=== PATIENT | male | born 1975 | race Caucasian/White ===

== ENCOUNTER 2018-05-26 15:27 | Emergency (ER) | payer OTHER ==
[~2018-05-26 15:27] MED LIST: ISOVUE-370 76%-LOCM 1 ML ONE
[2018-05-26 16:40] LABS: #Eosinphils 0.3 thou/uL (0.0-0.7); #Lymphocytes 2.8 thou/uL (1.20-3.40); #Monocytes 0.8 thou/uL (0.11-0.59); #Neutrophils 4.3 thou/uL (1.40-6.50); %Basophils 0.5 % (0.0-1.0); %Eosinophils 3.5 % (0.0-10.0); %Lymphocytes 33.9 % (21.0-51.0); %Monocytes 9.6 % (0.0-10.0); %Neutrophils 52.5 % (42.0-75.0); Mean Corpuscular HGB CONC 34.5 g/dL (32.0-36.0); Mean Corpuscular Hemoglobin 30.2 pg (27.0-31.0); Mean Corpuscular Volume 87.8 fL (78.0-98.0); Mean Platelet Volume 9.2 fL (7.4-10.4); Platelet Count 176 thou/uL (130-400); RBC Distribution Width 12.1 % (11.5-14.5); Red Blood Cell (RBC) Count 4.65 mill/uL (4.70-6.10); White Blood Cell (WBC) Count 8.1 thou/uL (4.8-10.8)
[2018-05-26 16:58] LABS: ALT (SGPT) 32 U/L (8-55); AST (SGOT) 34 U/L (5-34); Albumin 4.3 g/dL (3.5-5.0); Alkaline Phosphatase 85 U/L (40-150); Anion Gap 12 mmol/L (10-20); BUN (Urea Nitrogen) 14 mg/dL (8.9-20.6); Bilirubin, Total 0.3 mg/dL (0.2-1.2); Calc. Creatinine Clearance 0 mL/min (70-130); Calcium 8.8 mg/dL (7.8-10.44); Carbon Dioxide 21 mmol/L (22-29); Chloride 110 mmol/L (98-107); Estimated GFR-MDRD 62; Glucose 103 mg/dL (70-105); Potassium 3.5 mmol/L (3.5-5.1); Protein, Total 7.3 g/dL (6.0-8.3); Sodium 139 mmol/L (136-145)
--- NOTE | 2018-05-26 21:36 | CT ---
CT ABDOMEN AND PELVIS WITH IV CONTRAST 05/26/18 Multiple axial tomograms obtained through the abdomen and pelvis with IV enhancement. INDICATIONS: Abdominal pain. Rectal bleeding. Lung bases clear. Liver, spleen, and pancreas unremarkable. Adrenal gland and kidneys unremarkable. T here are at least two small nonobstructing calculi in the upper collecting structures of the left kid christina measuring 2 to 3 mm. Kidneys otherwise unremarkable. The bladder is contracted and not well evalu ated. Small bowel loops appear normal. Appendix appears normal. Stool throughout the colon. Mucosal lesions are not excluded. There is no evidence of inflammation or fluid. The rectum and sigmoid appears unre markable. Retroperitoneum is unremarkable. IMPRESSION: No acute process. POS: [facility]
== END 2018-05-26 21:28 | disposition home or self-care (01) ==
LOC: ERS 15:27
DX: K62.5 Hemorrhage of anus and rectum (principal)
CPT/HCPCS: 74177; 80053; 82274; 85025